=== PATIENT | male | born 1955 | race Caucasian/White ===

== ENCOUNTER → 2016-09-04 | Outpatient (CLI) | payer BC ==
[~2016-09-04] MED LIST: ASPI81TA28 PO; LISI-461 PO; METO1TAB31 PO; MULT-190 PO; MULTTAB58 PO; NITR0.4S UT; NTRGSL/4 UT; PLV75 PO; SIMV40TA2 PO; VSC/5 PO; ZCR40 PO; ZNTT/150 PO
[2016-09-04 11:22] LABS: ALB/GLOB RATIO 1.4 (0.9-2); ALT/SGPT 38 U/L (12-78); AST/SGOT 20 U/L (15-37); BLOOD UREA NITROGEN 23 mg/dl (7-18); BUN/CREATININE RATIO 24.3 (10-20); CALCIUM 9.1 mg/dl (8.5-10.1); CARBON DIOXIDE 28 mmol/L (21-32); CHLORIDE 104 mmol/L (98-107); CHOLESTEROL 170 mg/dl (0-200); CREATININE 0.93 mg/dl (0.60-1.40); GLUCOSE 105 mg/dl (70-99); POTASSIUM 3.9 mmol/L (3.5-5.1); SODIUM 140 mmol/L (136-145); TRIGLYCERIDES 152 mg/dl (0-150); VERY LOW DENSITY LIPOPROT CALC 30 mg/dl
[2016-09-04 11:23] LABS: ALKALINE PHOSPHATASE 63 U/L (45-117); CHOLESTEROL/HDL RATIO 3.8; HDL CHOLESTEROL 45 mg/dl; LDL CHOLESTEROL CALCULATED 95 mg/dl
== END | disposition home or self-care (01) ==
LOC: C.LABBC 08:20
PROVIDERS: ATTEND Family Medicine
DX: Z11.59 Encounter for screening for other viral diseases (principal); I10 Essential (primary) hypertension; E78.5 Hyperlipidemia, unspecified

== ENCOUNTER → 2017-04-12 | Day surgery (SDC) | payer BC ==
[2017-03-31 09:47] VITALS: BMI 26.0
[~2017-04-12] VITALS: Ht 193 cm; Wt 97.7 kg
[~2017-04-12] MED LIST changes: -METO1TAB31 PO; -NTRGSL/4 UT; -PLV75 PO; +PROPOFOL IV EMULSION 10 MG/ML 20 ML VIAL IV ONE; +SODIUM CHLORIDE 0.9% 500ML 500 ML IV ONE; -ZCR40 PO
[2017-04-12 10:35] VITALS: Ht 193 cm; Wt 97.7 kg
--- NOTE | 2017-04-12 11:28 | Endo History and Physical ---
History & Physical Date of Service: Apr 12, 2017. Chief Complaint: SCREENING FOR COLON CA Referring Physician: DR. YOUNG History of Present Illness 61 yo CM who presents for screening colonoscopy. Past Surgical History Hx Cardiac Surgery: No Hx Internal Defibrillator: No Hx Pacemaker: No Hx Abdominal Surgery: No Hx of Implantable Prosthesis: No Hx Post-Op Nausea and Vomiting: No Hx Cancer Surgery: Yes (MOHS ON RT ARM) Hx Thoracic Surgery: No Hx Orthopedic: No Hx Urinary Tract Surgery: No Family History None Social History Smoking Status: Never Smoker Hx Substance Use: No Hx Alcohol Use: Yes (OCCASIONALLY) Allergies Coded Allergies: No Known Allergies (Unverified , 04/12/17) Current Medications Reported Home Medications Medications Dose Route/Sig Max Daily Dose Days Date Category Zantac (Ranitidine HCl) 150 Mg Tab 1 Tab PO BID 30 04/12/17 Reported Nitrostat (Nitroglycerin) 0.4 Mg Sub 0.4 Mg UT PRN 03/31/17 Reported Ocuvite Preservision (Multivitamins/Minerals) 1 Tab Tab 1 Tab PO QAM 03/31/17 Reported Vesicare (Solifenacin) 5 Mg Tab 5 Mg PO QAM 03/31/17 Reported Zestril (Lisinopril) 10 Mg Tab 5 Mg PO BID 03/31/17 Reported Zocor (Simvastatin) 40 Mg Tab 40 Mg PO QAM 03/31/17 Reported Multivitamin (Multiple Vitamin) 1 Tab Tab 1 Tab PO QAM 09/13/13 Reported Aspirin Ec (Aspirin) 81 Mg Tab 81 Mg PO QAM 09/13/13 Reported Vital Signs Weight (Kilograms): 97.73 Height (Feet): 6 Height (Inches): 4 Date Time Temp Pulse Resp B/P (MAP) Pulse Ox O2 Delivery O2 Flow Rate FiO2 04/12/17 10:46 36.6 90 20 153/85 (107) 93 Room Air Physical Exam General Appearance: WD/WN, no apparent distress Respiratory/Chest: Auscultation: breath sounds normal Cardiovascular: Heart Auscultation: RRR Abdomen: Bowel Sounds: normal Inspection & Palpation: soft, non-distended, no tenderness, guarding & rebound Assessment and Plan Assessment: 61 yo CM who presents for screening colonoscopy. Plan: Proceed with colonoscopy.
--- NOTE | 2017-04-12 11:58 | Anesthesiology Progress Note ---
Anesthesia Post Op Note Date & Time Apr 12, 2017 at 11:58 Vital Signs Vital Signs Past 12 Hours Date Time Temp Pulse Resp B/P (MAP) Pulse Ox O2 Delivery O2 Flow Rate FiO2 04/12/17 10:46 36.6 90 20 153/85 (107) 93 Room Air Notes Mental Status: alert / awake / arousable, participated in evaluation Pt Amnestic to Procedure: Yes Nausea / Vomiting: adequately controlled Pain: adequately controlled Airway Patency, RR, SpO2: stable & adequate BP & HR: stable & adequate Hydration State: stable & adequate Anesthetic Complications: no major complications apparent
--- NOTE | 2017-04-12 12:05 | Discharge Instructions ---
Endoscopy Patient Instructions Date / Procedure(s) Performed Apr 12, 2017. Colonoscopy Allergy Information Coded Allergies: No Known Allergies (Unverified , 04/12/17) Discharge Date / Findings Apr 12, 2017. Diverticulosis Internal hemorrhoids Medication Instructions OK to resume all medications today as prescribed Reported Home Medications Medications Dose Route/Sig Max Daily Dose Days Date Category Zantac (Ranitidine HCl) 150 Mg Tab 1 Tab PO BID 30 04/12/17 Reported Nitrostat (Nitroglycerin) 0.4 Mg Sub 0.4 Mg UT PRN 03/31/17 Reported Ocuvite Preservision (Multivitamins/Minerals) 1 Tab Tab 1 Tab PO QAM 03/31/17 Reported Vesicare (Solifenacin) 5 Mg Tab 5 Mg PO QAM 03/31/17 Reported Zestril (Lisinopril) 10 Mg Tab 5 Mg PO BID 03/31/17 Reported Zocor (Simvastatin) 40 Mg Tab 40 Mg PO QAM 03/31/17 Reported Multivitamin (Multiple Vitamin) 1 Tab Tab 1 Tab PO QAM 09/13/13 Reported Aspirin Ec (Aspirin) 81 Mg Tab 81 Mg PO QAM 09/13/13 Reported Provider Instructions Activity Restrictions - No exercising or heavy lifting for 24 hours. - Do not drink alcohol the day of the procedure. - Do not drive a car or operate machinery until the day after the procedure. - Do not make any important decisions or sign important papers in 24 hours after the procedure. Following Day: - Return to full activity which may include returning to work/school. Diet Start your diet with liquids and light foods (jello, soup, juice, toast). Then eat your usual diet if not nauseated. Treatment For Common After Affects For mild abdominal pain, bloating, or excessive gas: - Rest - Eat lightly - Lie on right side Follow-Up Information Follow-up with DR. YOUNG as scheduled Anesthesia Information What You Should Know You have had a procedure that required some medicine to reduce anxiety and discomfort. This treatment is called moderate sedation. After receiving the treatment, you may be sleepy, but you will be able to breathe on your own. The effects of the treatment may last for several hours. Follow these instructions along with Activity/Diet recommendations noted above: * Do NOT do anything where dizziness or clumsiness would be dangerous. * Rest quietly at home today, then you can be up and about tomorrow. * Have a responsible person stay with you the rest of today. * You may have had an I.V. today. If so, you may take the dressing off later today. Recommendations Call your doctor if: * Trouble breathing * Continuous vomiting for more than 24 hours * Temperature above 101 degrees * Severe abdominal pain or bloating * Pain not relieved by pain medicine ordered * There is increased drainage or redness from any incision * A large amount of rectal bleeding greater than 2-3 tablespoons. (If you had a polyp/s removed or have hemorrhoids, a small amount of blood - from the rectum is to be expected.) * You have any unanswered questions or concerns. IN THE EVENT OF A SERIOUS EMERGENCY, GO TO THE NEAREST EMERGENCY ROOM Your discharge instructions were prepared by provider Twin Crawford. Patient Instructions Signature Page Benoit Brown Patient (or Guardian) Signature/Date: I have read and understand the instructions given to me by my caregivers. Caregiver/RN/Doctor Signature/Date: The above-named patient and/or guardian has received patient instructions on this date. + Original Patient Signature Page (only) stays with chart. Please make copy for patient.
--- NOTE | 2017-04-12 12:16 | GI REPORT ---
Procedure Date: 04/12/2017 11:31 AM Procedure: Colonoscopy Indications: Screening for colorectal malignant neoplasm Medicines: Monitored Anesthesia Care Complications: No immediate complications. Estimated Blood Loss: Estimated blood loss: none. Procedure: Pre-Anesthesia Assessment: - Prior to the procedure, a History and Physical was performed, and patient medications and allergies were reviewed. The patient's tolerance of previous anesthesia was also reviewed. The risks and benefits of the procedure and the sedation options and risks were discussed with the patient. All questions were answered, and informed consent was obtained. Prior Anticoagulants: The patient has taken aspirin, last dose was 1 day prior to procedure. ASA Grade Assessment: III - A patient with severe systemic disease. After reviewing the risks and benefits, the patient was deemed in satisfactory condition to undergo the procedure. After I obtained informed consent, the scope was passed under direct vision. Throughout the procedure, the patient's blood pressure, pulse, and oxygen saturations were monitored continuously. The scope was introduced through the anus and advanced to the terminal ileum. The colonoscopy was performed without difficulty. The patient tolerated the procedure well. The quality of the bowel preparation was good. The terminal ileum, ileocecal valve, appendiceal orifice, and rectum were photographed. Findings: Multiple small-mouthed diverticula were found in the sigmoid colon. Non-bleeding internal hemorrhoids were found during retroflexion. The hemorrhoids were small. Impression: - Diverticulosis in the sigmoid colon. - Non-bleeding internal hemorrhoids. - No specimens collected. Recommendation: - Resume previous diet. - Continue present medications. - Repeat colonoscopy in 10 years for surveillance. - Return to primary care physician as previously scheduled. Twin Crawford, 04/12/2017 12:15:20 PM This report has been signed electronically. Note Initiated On: 04/12/2017 11:31 AM I attest to the content of the Intraoperative Record and orders documented therein, exceptions below
[2017-04-12 12:30] VITALS: BP 124/77; PULSE 72; O2SAT 96
== END | disposition home or self-care (01) ==
LOC: C.GI 10:11
PROVIDERS: ATTEND Internal Medicine
DX: Z12.11 Encounter for screening for malignant neoplasm of colon (principal); K57.30 Diverticulosis of large intestine without perforation or abscess without bleeding; K64.8 Other hemorrhoids; Z79.899 Other long term (current) drug therapy

== ENCOUNTER → 2017-10-04 | Outpatient (CLI) | payer BC ==
[~2017-10-04] MED LIST changes: -PROPOFOL IV EMULSION 10 MG/ML 20 ML VIAL IV ONE; +RANI150T85 PO; -SODIUM CHLORIDE 0.9% 500ML 500 ML IV ONE; -ZNTT/150 PO
--- NOTE | 2017-10-04 09:51 | DIAGNOSTIC IMAGING REPORT ---
[facility]UB CLINICAL HISTORY: N20.0 [id number] COMPARISON STUDY: 07/10/2016 FINDINGS: There is no pathologic bowel dilatation. There are no calcifications suspicious for renal calculi. Multiple pelvic basin calcifications remain similar to the prior study and likely are presented accommodation of phleboliths and prostatic calcification IMPRESSION: 1. No urinary tract calculi identified Electronically signed by: Brayan Rollins M.D. 10/04/2017 9:50 AM Dictated Date/Time: 10/04/2017 9:49 AM
== END ==
LOC: C.RAD1850 09:35
PROVIDERS: ATTEND Urology
DX: N20.0 Calculus of kidney (principal)

== ENCOUNTER → 2017-10-04 | Outpatient (CLI) | payer BC ==
[2017-10-04 12:38] LABS: BASO % 0.5 %; BASO ABS # 0.03 K/uL (0-0.2); EOS % 1.8 %; EOS ABS # 0.12 K/uL (0-0.5); HEMATOCRIT 48.4 % (42-52); HEMOGLOBIN 16.7 g/dL (14.0-18.0); IG# 0.01 K/uL (0.00-0.02); LYMPH % 28.6 %; MEAN CELL VOLUME 92.5 fL (80-100); MEAN CORPUSCULAR HEMOGLOBIN 31.9 pg (25-34); MEAN CORPUSCULAR HGB CONC 34.5 g/dl (32-36); MONO % 8.9 %; MONO ABS # 0.59 K/uL (0.11-0.59); NEUT ABS # 3.99 K/uL (1.4-6.5); PLATELET COUNT 182 K/uL (130-400); RED CELL DISTRIBUTION WIDTH CV 13.1 % (11.5-14.5); RED CELL DISTRIBUTION WIDTH SD 44.2 fL (36.4-46.3); WHITE BLOOD COUNT 6.64 K/uL (4.8-10.8)
[2017-10-04 12:56] LABS: ALBUMIN 3.8 gm/dl (3.4-5.0); ALT/SGPT 45 U/L (12-78); BLOOD UREA NITROGEN 21 mg/dl (7-18); CALCIUM 8.6 mg/dl (8.5-10.1); CARBON DIOXIDE 26 mmol/L (21-32); CHOLESTEROL 142 mg/dl (0-200); CREATININE 1.06 mg/dl (0.60-1.40); GLUCOSE 101 mg/dl (70-99); POTASSIUM 4.1 mmol/L (3.5-5.1); SODIUM 140 mmol/L (136-145)
[2017-10-04 13:00] LABS: ALKALINE PHOSPHATASE 72 U/L (45-117); AST/SGOT 23 U/L (15-37); LDL CHOLESTEROL CALCULATED 68 mg/dl; TOTAL PROTEIN 6.8 gm/dl (6.4-8.2)
== END ==
LOC: C.LABBFT 07:37
PROVIDERS: ATTEND Internal Medicine
DX: N20.0 Calculus of kidney (principal); N40.0 Benign prostatic hyperplasia without lower urinary tract symptoms; E78.5 Hyperlipidemia, unspecified; I10 Essential (primary) hypertension